=== PATIENT | female | born 1985 | race Caucasian/White ===

== ENCOUNTER 2017-11-16 20:32 | Inpatient (IN) | payer OTHER ==
[~2017-11-16] VITALS: Ht 160 cm; Wt 95.0 kg
[~2017-11-16 20:32] MED LIST: PREN1CAP7 PO
[2017-11-16] MEDS ORDERED: LACTATED RINGER'S 1000 ML INJ 1,000 ML IV PRN (21:21)
[2017-11-16] MEDS ORDERED: LIDOCAINE HCL 1% 50 ML VIAL INFIL PRN (21:30)
[2017-11-16] MEDS ORDERED: CITRIC ACID-SODIUM CITRATE LIQ 30 ML UDC PO SCH (21:30)
[2017-11-16] MEDS ORDERED: SODIUM CHLORID 0.9% 500 ML INJ 500 ML IV PRN (21:30)
[2017-11-16] MEDS ORDERED: LIDOCAINE HCL 1% 50 ML VIAL I-DERMAL PRN (21:30)
[2017-11-16] MEDS ORDERED: OXYTOCIN 30 UNITS-500ML PREMIX 500 ML IV ONE (21:30)
[2017-11-16] MEDS ORDERED: DINOPROSTONE 10 MG VAG INSERT VAGINAL ONE ×2 (21:30)
[2017-11-16] MEDS ORDERED: ONDANSETRON HCL 4 MG/2 ML VIAL IV PUSH PRN (21:30)
[2017-11-16] MEDS ORDERED: MINERAL OIL 10 ML VIAL TOPICAL PRN (21:30)
[2017-11-16] MEDS: LACTATED RINGER'S 1000 ML INJ 1,000 ML IV SCH (21:31)
[2017-11-16] MEDS ORDERED: SODIUM CHLOR 0.9% 1000 ML INJ 1,000 ML IV PRN (21:41)
[2017-11-16 22:09] LABS: BACTERIA, URINE RARE /hpf; BILIRUBIN, URINE NEG (NEG); BLOOD, URINE TRACE (NEG); GLUCOSE,URINE 300 mg/dL (NEG); KETONE, URINE NEG (NEG); MUCUS URINE FEW /lpf (OCC); NITRITE,URINE NEG (NEG); PH, URINE 5.5 (5.0-8.5); SQUAMOUS EPITHELIAL CELL URINE 1 /hpf (0-5); URINE COLOR YELLOW (YELLW/STRAW); URINE LEUKOCYTE ESTERASE NEG (NEG)
[2017-11-16 22:09] LABS: AUTOMATED NEUTROPHIL # 14.4 TH/MM3 (1.8-7.7); BASOPHIL % 0.2 % (0.0-2.0); EOSINOPHIL # 0.3 TH/MM3 (0-0.4); EOSINOPHIL % 1.6 % (0.0-4.0); HEMATOCRIT 34.1 % (35.0-46.0); HEMOGLOBIN 11.1 GM/DL (11.6-15.3); LYMPH % 14.2 % (9.0-44.0); LYMPHOCYTE # 2.7 TH/MM3 (1.0-4.8); MEAN CORPUSCULAR HEMOGLOBIN 24.8 PG (27.0-34.0); MEAN CORPUSCULAR HGB CONC 32.6 % (32.0-36.0); MEAN PLATELET VOLUME 7.7 FL (7.0-11.0); MONO % 7.8 % (0.0-8.0); MONOCYTE # 1.5 TH/MM3 (0-0.9); NEUT % 76.2 % (16.0-70.0); PLATELET COUNT 383 TH/MM3 (150-450); RED BLOOD COUNT 4.49 MIL/MM3 (4.00-5.30); WHITE BLOOD COUNT 18.9 TH/MM3 (4.0-11.0)
--- NOTE | 2017-11-16 22:10 | HHI.HP ---
HPI Chief Complaint Induction of labor Date Seen: Nov 16, 2017 Time Seen: 21:00 Travel History International Travel<30 Days: No Contact w/Intl Traveler<30Days: No Known Affected Area: No History of Present Illness HPI Patient is a 32-year-old at 41 weeks who presents here today for induction of labor for post dates. She had her care care for women. She has had no problems this . She denies any vaginal bleeding or significant leakage of fluid. She reports movement. She reports having irregular contractions. She reports having some mucus-like discharge the Thursday before last, about 10 days ago. Patient is GBS negative. All labs were reviewed and are unremarkable. Weeks Gestation: 41 Para: 2 : 5 Miscarriage: 2 History Past Medical History Medical History: Denies Significant Hx Obstetric History Obstetric History Patient is a . She reports that her first delivery was an induction for low fluid, oligohydramnios. There was still a full term delivery of a normal birthweight child. Her second delivery was a spontaneous vaginal delivery at over 41 weeks. She reports this was also a normal birthweight baby. She now has a healthy 12-year-old and a 5-year-old. She also reports 2 early miscarriages. Past Surgical History Surgical History: No Previous Surgery Family History Narrative Family History Her mother has a history of diabetes and hypertension. Social History Narrative Social History She feels safe at home. Alcohol Use: No Tobacco Use: Yes (She has been smoking throughout her and has cut down to about 4 cigarettes or 1/5 of a pack per day.) Substance Abuse: No Allergies-Medications (Allergen,Severity, Reaction): Coded Allergies: No Known Allergies (Verified Adverse Reaction, Unknown, 11/16/17) Home Meds Reported Medications W/O Vit A W/ Fe Fumar (Citranatal Menan) 27-1-260 Mg Cap, 1 CAP PO DAILY for Nutritional Supplement, #30 CAP 0 Refills 08/26/17 Review of Systems Except as stated in HPI: all other systems reviewed are Neg General / Constitutional: No: Fever, Chills Eyes: No: Visual changes HENT: No: Headaches Cardiovascular: No: Chest Pain or Discomfort, Edema Respiratory: No: Short of Breath Genitourinary: No: Dysuria, Decreased Urinary Output Musculoskeletal: No: Edema Neurologic: No: Headache Endocrine: No: Polydipsia, Polyuria Physical Exam 141/81, 91, 16, 98.3, pain 1 Narrative GENERAL: Well-nourished, well-developed patient. SKIN: Warm and dry. HEAD: Normocephalic and atraumatic. EYES: No scleral icterus. No injection or drainage. ENT: No nasal drainage noted. Mucous membranes pink. Airway patent. NECK: Supple, trachea midline. No JVD. CARDIOVASCULAR: Regular rate and rhythm without murmurs, gallops, or rubs. RESPIRATORY: Breath sounds equal bilaterally. No accessory muscle use. ABDOMEN/GI: Abdomen soft, non-tender, bowel sounds present, no rebound, no guarding Gravid to [41] weeks size Baby's back is to the right, head is cephalic both by palpation and by ultrasound GENITOURINARY: External Genitalia: intact and normal in appearance Cervix: [Posterior] Dilatation: [0-1 cm] Effacement: [30%] Station: [-3] Presentation: [cephalic] Membranes: [intact] Uterine Contractions: [Irregular, about every 5-7 minutes] FHT's: Category: [Category 1] Baseline: [140 bpm] Reactive: [Reactive] Variability: [Moderate] Decels: [None] EXTREMITIES: No cyanosis or edema. BACK: Nontender without obvious deformity. No CVA tenderness. NEUROLOGICAL: Awake and alert. Motor and sensory grossly within normal limits. Five out of 5 muscle strength in all muscle groups. Normal speech. Caprini VTE Risk Assessment Caprini VTE Risk Assessment: No/Low Risk (score <= 1) VTE Pharm Contraindication: High risk for bleeding Caprini Risk Assessment Model Point Value = 1 Point Value = 2 Point Value = 3 Point Value = 5 Age 41-60 Minor surgery BMI > 25 kg/m2 Swollen legs Varicose veins or History of unexplained or recurrent spontaneous Oral contraceptives or hormone replacement Sepsis (< 1 month) Serious lung disease, including pneumonia (< 1 month) Abnormal pulmonary function Acute myocardial infarction Congestive heart failure (< 1 month) History of inflammatory bowel disease Medical patient at bed rest Age 61-74 Arthroscopic surgery Major open surgery (> 45 min) Laparoscopic surgery (> 45 min) Malignancy Confined to bed (> 72 hours) Immobilizing plaster cast Central venous access Age >= 75 History of VTE Family history of VTE Factor V Leiden Prothrombin [id number] Lupus anticoagulant Anticardiolipin antibodies Elevated serum homocysteine Heparin-induced thrombocytopenia Other congenital or acquired thrombophilia Stroke (< 1 month) Elective arthroplasty Hip, pelvis, or leg fracture Acute spinal cord injury (< 1 month) Prophylaxis Regimen Total Risk Factor Score Risk Level Prophylaxis Regimen 0-1 Low Early ambulation 2 Moderate Order ONE of the following: *Sequential Compression Device (SCD) *Heparin 5000 units SQ BID 3-4 Higher Order ONE of the following medications: *Heparin 5000 units SQ TID *Enoxaparin/Lovenox 40 mg SQ daily (WT < 150 kg, CrCl > 30 mL/min) *Enoxaparin/Lovenox 30 mg SQ daily (WT < 150 kg, CrCl > 10-29 mL/min) *Enoxaparin/Lovenox 30 mg SQ BID (WT < 150 kg, CrCl > 30 mL/min) AND/OR *Sequential Compression Device (SCD) 5 or more Highest Order ONE of the following medications: *Heparin 5000 units SQ TID (Preferred with Epidurals) *Enoxaparin/Lovenox 40 mg SQ daily (WT < 150 kg, CrCl > 30 mL/min) *Enoxaparin/Lovenox 30 mg SQ daily (WT < 150 kg, CrCl > 10-29 mL/min) *Enoxaparin/Lovenox 30 mg SQ BID (WT < 150 kg, CrCl > 30 mL/min) AND *Sequential Compression Device (SCD) Data Data Vital Signs Reviewed: Yes Orders Orders Admit To Inpatient (11/16/17 ) Activity Oob Ad Akua (11/16/17 21:21) ^ Labor Induction (11/16/17 21:21) ^ Vaginal Insert (11/16/17 21:21) Heart (11/16/17 21:21) Dinoprostone Vag Insert (Cervidil Vag In (11/16/17 21:30) Dinoprostone Vag Insert (Cervidil Vag In (11/16/17 21:30) Admit To Inpatient (11/16/17 ) Code Status (11/16/17 21:21) Vital Signs (Adult) .Per protocol (11/16/17 21:21) Activity Oob Ad Akua (11/16/17 21:21) Heart (11/16/17 21:21) Amnioinfusion (11/16/17 21:21) Urinary Catheter Management .ONCE (11/16/17 21:21) Diet Liquid (11/17/17 Breakfast) Lactated Ringer's 1000 Ml Inj (Lr 1000 M (11/16/17 21:21) Lactated Ringer's 1000 Ml Inj (Lr 1000 M (11/16/17 21:21) Sodium Chlorid 0.9% 500 Ml Inj (Ns 500 M (11/16/17 21:30) Sodium Chlor 0.9% 1000 Ml Inj (Ns 1000 M (11/16/17 21:41) Lidocaine 1% Inj (50 Ml) (Xylocaine 1% I (11/16/17 21:30) Citric Acid-Sodium Citrate Liq (Bicitra (11/16/17 21:30) Ondansetron Inj (Zofran Inj) (11/16/17 21:30) Fentanyl Inj (Fentanyl Inj) (11/16/17 21:30) Fentanyl Inj (Fentanyl Inj) (11/16/17 21:30) Complete Blood Count With Diff (11/16/17 21:21) Hold Clot (11/16/17 21:21) Abo/Rh Blood Type (11/16/17 21:21) Urinalysis - C+S If Indicated (11/16/17 21:21) Drug Screen, Random Urine (11/16/17 21:21) Ob/Psych Drug Screen, Urine (11/16/17 21:21) Type And Screen (11/16/17 21:21) Resp Oxygen Non Rebreathe Mask (11/16/17 ) ^ Epidural / Intrathecal Infus (11/16/17 21:21) Oxytocin 30 Units-500ml Premix (Pitocin (11/16/17 21:30) Lidocaine 1% Inj (50 Ml) (Xylocaine 1% I (11/16/17 21:30) Light Mineral Oil (Muri-Lube Oil) (11/16/17 21:30) Inpatient Certification (11/16/17 ) Inpatient Certification (11/16/17 ) Specimen To Be Collected PRN (11/16/17 21:21) Specimen To Be Collected PRN (11/16/17 21:21) Group B Strep: Negative Assessment/Plan Problem List: (1) Encounter for induction of labor ICD Codes: Z34.90 - Encounter for supervision of normal , unspecified , unspecified trimester (2) Post-dates ICD Codes: O48.0 - Post-term Assessment and Plan Patient is a 32-year-old at 41 weeks who presents here today for induction of labor for post dates. Patient is GBS negative. heart tracing is category 1, reassuring. Cervical exam is long thick and closed. Cephalic position confirmed by ultrasound. Plan to admit for induction of labor , cervical ripening with Cervidil. 1) labor and delivery admission and induction of labor for post dates -Admitted to inpatient -ABO/Rh blood type, hold clot, type and screen -Liquid diet -CBC, UDS, UA -LR IV at 125 mL/h -Cervidil; monitor for hyperstimulation -Fentanyl as needed for pain -Zofran as needed for nausea -Patient requested epidural -Monitor vital signs -Anticipate vaginal delivery Pt s/d/w Dr. Horton. Danielito Gale MD R2 Nov 16, 2017 22:09
[2017-11-17] VITALS (22 sets, daily range): BP systolic 118–139; BP diastolic 60–92; PULSE 68–91; RESP 16–20; TEMP 97.5–98.7
[2017-11-17] MEDS: LACTATED RINGER'S 1000 ML INJ 1,000 ML IV SCH ×3 (06:22→23:27)
--- NOTE | 2017-11-17 09:26 | PD.LABORPN ---
Subjective Subjective Ms Maya is a 32YO at 41/1 undergoing IOL. Cervidil removed at 09:13AM. Cervix 1-2/60/-3. FHT Cat 1, w/BL 120, reactive, moderate, no decels, no ctx Objective Vital Signs Vital Signs Date Time Temp Pulse Resp B/P (MAP) Pulse Ox O2 Delivery O2 Flow Rate FiO2 11/17/17 07:28 68 128/84 (99) 11/17/17 07:28 20 11/17/17 07:27 97.5 11/17/17 03:52 98.0 16 11/17/17 03:51 83 137/89 (105) Objective Pelvic Exam: Cervix: open/posterior Dilatation: 1-2 Effacement: 60 Station: -3 Presentation: vtx Membranes: intact Uterine Contractions: absent FHT's: Category: 1 Baseline: 120 Reactive: yes Variability: moderate Decels: absent Weeks Gestation: 41 Medical induction start date: Nov 16, 2017 Medical induction start time: 22:00 Assessment/Plan Problem List: (1) Encounter for induction of labor ICD Codes: Z34.90 - Encounter for supervision of normal , unspecified , unspecified trimester (2) Post-dates ICD Codes: O48.0 - Post-term Assessment and Plan 32YO at 41/1 weeks here for post-dates IOL. Cervidil placed last night at approx 22:00hrs and removed at 0913hrs. Cervix open/posterior, 1-2/60/-3. FHT cat 1, BL 120, reactive, moderate, absent decels 1. IUP - induction of labor for post dates -Cervidil removed 0913hrs -Start Pitocin after 30 minutes (approx 0945hrs) -Fentanyl as needed for pain -Zofran as needed for nausea -Patient requested epidural -Monitor vital signs -Anticipate vaginal delivery Pt seen and dw Devon Horton and Lucas Arambula MD R1 Nov 17, 2017 09:26
[2017-11-17] MEDS ORDERED: OXYTOCIN 30 UNITS-500ML PREMIX 500 ML ONE (09:40)
[2017-11-17] MEDS ORDERED: OXYTOCIN 30 UNITS-500ML PREMIX 500 ML IV PRN (10:15)
--- NOTE | 2017-11-17 10:44 | PD.LABORPN ---
Subjective Subjective Patient re-evaluated at bedside with Dr. Curiel. He discussed new plan of care- will discontinue Pitocin and start Cytotec 25mcg q4hr buccally. Monitor cervical checks q4hr. DW Labor nurse. Objective Vital Signs Vital Signs Date Time Temp Pulse Resp B/P (MAP) Pulse Ox O2 Delivery O2 Flow Rate FiO2 11/17/17 10:31 87 122/68 (86) 11/17/17 10:16 82 123/79 (94) 11/17/17 10:01 83 132/77 (95) 11/17/17 07:28 68 128/84 (99) 11/17/17 07:28 20 11/17/17 07:27 97.5 11/17/17 03:52 98.0 16 11/17/17 03:51 83 137/89 (105) Objective Pelvic Exam: Cervix: [-] Dilatation: [-] Effacement: [-] Station: [-] Presentation: [-] Membranes: [intact or ruptured] Uterine Contractions: [-] FHT's: Category: [-] Baseline: [-] Reactive: [-] Variability: [-] Decels: [-] Weeks Gestation: 41 Medical induction start date: Nov 16, 2017 Medical induction start time: 22:00 Assessment/Plan Problem List: (1) Encounter for induction of labor ICD Codes: Z34.90 - Encounter for supervision of normal , unspecified , unspecified trimester (2) Post-dates ICD Codes: O48.0 - Post-term Laura Nielsen MD R2 Nov 17, 2017 10:44
[2017-11-17] MEDS: MISOPROSTOL 25 MCG TAB PO SCH ×4 (11:13→23:27)
[2017-11-17] MEDS ORDERED: MISOPROSTOL 200 MCG TAB PO SCH (13:00)
[2017-11-18] VITALS (50 sets, daily range): BP systolic 90–156; BP diastolic 50–81; PULSE 65–91; RESP 16–18; TEMP 97.6–98
[2017-11-18] MEDS: MISOPROSTOL 25 MCG TAB PO SCH ×3 (03:30→11:30)
[2017-11-18] MEDS: LACTATED RINGER'S 1000 ML INJ 1,000 ML IV SCH ×2 (07:30→12:06)
[2017-11-18] MEDS ORDERED: MISOPROSTOL 25 MCG TAB OTHER ONE (08:30)
--- NOTE | 2017-11-18 09:28 | PD.LABORPN ---
Subjective Subjective Patient still in latent phase, feeling some ctx. Just received fifth dose of Cytotec buccally. No complaints Objective Vital Signs Vital Signs Date Time Temp Pulse Resp B/P (MAP) Pulse Ox O2 Delivery O2 Flow Rate FiO2 11/18/17 07:22 97.8 18 11/18/17 07:21 73 120/81 (94) 11/18/17 06:49 18 11/18/17 05:30 18 11/18/17 04:00 18 11/18/17 02:00 16 Objective Pelvic Exam: Cervix: 3/70/-3, vertex Membranes: intact Uterine Contractions: every 2-5 min FHT's: Category: [1] Baseline: [140] Reactive: [160] Variability: [mod] Decels: [absent] Weeks Gestation: 41 Medical induction start date: Nov 16, 2017 Medical induction start time: 22:00 Assessment/Plan Problem List: (1) Encounter for induction of labor ICD Codes: Z34.90 - Encounter for supervision of normal , unspecified , unspecified trimester (2) Post-dates ICD Codes: O48.0 - Post-term Assessment and Plan 32YO at 41/2 weeks here for post-dates IOL. Cervidil 11/17 overnight, and now s/p Cytotec 25mcg q4hr x 5 doses. Continue IOL with Cytotec at this time, discuss further plans if no adequate CTX after this dose. Clear liquids 1. IUP - induction of labor for post dates -Fentanyl as needed for pain -Zofran as needed for nausea -Patient requests epidural -Monitor vital signs -Anticipate vaginal delivery -GBS neg DW Laura Rodriguez MD R2 Nov 18, 2017 09:28
[2017-11-18] MEDS ORDERED: fentaNYL 2MCG-BUPIV 0.125% INJ 100 ML ONE (12:10)
[2017-11-18] MEDS ORDERED: OXYTOCIN 30 UNITS-500ML PREMIX 500 ML IV PRN (12:30)
[2017-11-18] MEDS ORDERED: NO SYSTEM NARCOTICS PRN (13:30)
[2017-11-18] MEDS ORDERED: ePHEDrine/NS 25 MG/5 ML SYRINGE IV PUSH PRN (13:30)
[2017-11-18] MEDS ORDERED: fentaNYL 2MCG-BUPIV 0.125% 100 ML EPIDURAL SCH (13:30)
[2017-11-18] MEDS ORDERED: DO NOT ADMINISTER ANTICOAGULANTS PRN (13:30)
[2017-11-18] MEDS ORDERED: LIDOCAINE HCL 1% PF 5 ML AMPULE ONE (16:08)
--- NOTE | 2017-11-18 18:20 | PD.OB.DELI ---
Weeks gestation: 41 Medical induction start date: Nov 16, 2017 Medical induction start time: 22:00 Anesthesia: Epidural Episiotomy: None Vaginal Delivery: Normal, Spontaneous Presentation: Occiput anterior, Vertex Nuchal Cord: None Delayed cord clamping (45 sec): Yes Infant: Male Delivery date: Nov 18, 2017 Delivery time: 18:06 One Minute : 8 Five Minute : 8 Weight: 4145g Placenta: Spontaneous delivery Laceration: No lacerations Estimated blood loss: 100cc Additional Information Dr Horton supervised while Dr Castro delivered the infant. Dr Praveen Anderson assisted. Lucas Castro MD R1 Nov 18, 2017 18:20
[2017-11-18] MEDS ORDERED: BENZOCAINE 20% TOPICAL SPRAY 60 ML CAN TOPICAL PRN (19:00)
[2017-11-18] MEDS ORDERED: OXYTOCIN 30 UNITS-500ML PREMIX 500 ML IV SCH (19:00)
[2017-11-18] MEDS ORDERED: ALUMINUM/MAGNESIUM/SIMETH 30 ML CUP PO PRN (19:00)
[2017-11-18] MEDS ORDERED: ACETAMINOPHEN 325 MG TAB PO PRN (19:00)
[2017-11-18] MEDS ORDERED: SODIUM CHLORIDE 0.9% FLUSH 10 ML FLUSH IV FLUSH PRN (19:00)
[2017-11-18] MEDS ORDERED: WITCH HAZEL 50%/GLYCERIN 12.5% 40 PAD JAR TOPICAL PRN (19:00)
[2017-11-18] MEDS ORDERED: MEASLES, MUMPS, RUBELLA VACCINE 0.5 ML VIAL SQ ONE (19:00)
[2017-11-18] MEDS ORDERED: ONDANSETRON ODT 4 MG TAB PO PRN (19:00)
[2017-11-18] MEDS ORDERED: DIPHTH/TETANUS/ACEL PERTUSSIS (BOOSTER) 0.5 ML VIAL/PFS IM ONE (19:00)
[2017-11-18] MEDS ORDERED: SODIUM CHLORIDE 0.9% FLUSH 10 ML FLUSH IV FLUSH SCH (21:00)
[2017-11-18] MEDS ORDERED: ZOLPIDEM TARTRATE 5 MG TAB PO PRN (21:00)
[2017-11-19] MEDS: IBUPROFEN 800 MG TAB PO PRN ×3 (05:53→23:47)
[2017-11-19] MEDS ORDERED: PETROLEUM/SHARK LIVER OIL/PHENYLEPHRINE 60 GM TUBE RECTAL PRN (07:45)
[2017-11-19 08:00] VITALS: BP 127/77; PULSE 73; RESP 20; TEMP 97.6; O2SAT 98
[2017-11-19] MEDS: DOCUSATE SODIUM 50 MG/SENNA 8.6 MG TAB PO PRN (09:31)
--- NOTE | 2017-11-19 09:41 | HHI.OB ---
Subjective Post Day: 1 Remarks Ms Trejo had no acute events overnight. Pain well controlled but with bothersome hemorrhoids, ambulating w/o dizziness, taking PO, voiding and flatus but no BM. Lochia decreasing. . Plans to get a tubal ligation performed and will discuss at 6 week follow up with [facility]. Requests circumcision for baby prior to discharge. No concerns. Objective Vitals/I&O Vital Signs Date Time Temp Pulse Resp B/P (MAP) Pulse Ox O2 Delivery O2 Flow Rate FiO2 11/18/17 22:20 77 136/78 (97) 11/18/17 22:20 97.8 11/18/17 22:20 16 11/18/17 20:07 18 11/18/17 20:00 68 136/72 (93) 11/18/17 19:45 75 133/76 (95) 11/18/17 19:30 69 129/70 (89) 11/18/17 19:15 73 141/69 (93) 11/18/17 19:15 18 11/18/17 19:00 79 140/73 (95) 11/18/17 18:59 18 11/18/17 18:45 86 141/74 (96) 11/18/17 18:44 98.0 11/18/17 18:42 18 11/18/17 18:30 80 135/63 (87) 11/18/17 18:24 18 11/18/17 18:23 82 146/72 (96) 11/18/17 17:30 84 148/73 (98) 11/18/17 17:06 18 11/18/17 17:00 81 106/65 (79) 11/18/17 16:30 76 135/80 (98) 11/18/17 16:11 18 11/18/17 16:11 97.7 11/18/17 16:00 69 128/74 (92) 11/18/17 15:31 85 112/50 (70) 11/18/17 15:09 16 11/18/17 15:01 75 90/56 (67) 11/18/17 14:30 71 129/66 (87) 11/18/17 14:14 97.6 11/18/17 14:08 18 11/18/17 14:00 65 131/68 (89) 11/18/17 13:30 68 124/66 (85) 11/18/17 13:30 66 11/18/17 13:25 68 11/18/17 13:20 75 11/18/17 13:15 79 11/18/17 13:10 74 136/58 (84) 11/18/17 13:10 71 11/18/17 13:05 81 98/52 (67) 11/18/17 13:05 78 11/18/17 13:00 79 127/66 (86) 11/18/17 13:00 77 11/18/17 12:55 76 18 11/18/17 12:55 79 133/66 (88) 11/18/17 12:50 80 11/18/17 12:50 85 131/64 (86) 11/18/17 12:45 88 11/18/17 12:45 83 121/64 (83) 11/18/17 12:40 83 11/18/17 12:40 91 148/69 (95) 11/18/17 12:35 91 143/62 (89) 11/18/17 12:35 86 11/18/17 12:31 85 130/77 (94) 11/18/17 12:30 82 11/18/17 12:29 79 156/69 (98) 11/18/17 11:47 97.7 18 11/18/17 11:47 72 143/81 (101) Objective Remarks GENERAL: Well-nourished, well-developed patient in [facility]. CARDIOVASCULAR: Regular rate and rhythm without murmurs, gallops, or rubs. RESPIRATORY: Breath sounds equal bilaterally. No accessory muscle use. ABDOMEN/GI: Abdomen soft, non-tender. Fundus: Firm, non-tender at umbilicus. GENITOURINARY: Light to moderate bleeding. EXTREMITIES: No cyanosis or edema, non-tender, without signs of DVT. Medications and IVs Current Medications Medications (Trade) Dose Ordered Sig/Davi Route Start Time Stop Time Status Last Admin Lactated Ringer's 1,000 ml @ 125 mls/hr Q8H IV 11/16/17 21:21 11/18/17 12:06 Lactated Ringer's 1,000 ml @ 3,000 mls/hr Q20M PRN IV 11/16/17 21:21 Sodium Chloride 1,000 ml @ 100 mls/hr Q10H PRN IV 11/16/17 21:41 (Xylocaine 1% Inj (50 ml)) 0.1 ml UNSCH X1 PRN I-DERMAL 11/16/17 21:30 11/19/17 21:29 (Bicitra Liq) 30 ml [employer] PO 11/16/17 21:30 11/20/17 21:29 (fentaNYL INJ) 50 mcg Q1H PRN IV PUSH 11/16/17 21:30 (fentaNYL INJ) 100 mcg Q1H PRN IV PUSH 11/16/17 21:30 (Muri-Lube Oil) 10 ml UNSCH PRN TOPICAL 11/16/17 21:30 Miscellaneous Information No systemic narcotics to be given except... UNSCH PRN .XX 11/18/17 13:30 11/19/17 13:29 Miscellaneous Information DO NOT ADMINISTER ANY ANTICOAGUL... UNSCH PRN .XX 11/18/17 13:30 11/19/17 13:29 Fentanyl/ Bupivacaine HCl 100 ml @ 0 mls/hr TITRATE EPIDURAL 11/18/17 13:30 (ePHEDrine/NS 25 MG/5 ML SYR) 10 mg UNSCH PRN IV PUSH 11/18/17 13:30 11/19/17 13:29 (NS Flush) 2 ml BID IV FLUSH 11/18/17 21:00 (NS Flush) 2 ml UNSCH PRN IV FLUSH 11/18/17 19:00 (Tylenol) 650 mg Q4H PRN PO 11/18/17 19:00 (Motrin) 800 mg Q8H PRN PO 11/18/17 19:00 11/19/17 05:53 (Americaine 20% Top Spr) 1 spray Q4H PRN TOPICAL 11/18/17 19:00 11/19/17 05:54 (Tucks Pads) 1 applic QID PRN TOPICAL 11/18/17 19:00 11/19/17 09:30 (Emily-Colace) 2 tab Q12H PRN PO 11/18/17 19:00 11/19/17 09:31 (Ambien) 5 mg HS PRN PO 11/18/17 21:00 (Mag-Al Plus Susp Liq) 15 ml Q8H PRN PO 11/18/17 19:00 (Zofran Odt) 4 mg Q6H PRN PO 11/18/17 19:00 (Preparation H Oint) 1 applic Q6H PRN RECTAL 11/19/17 07:45 11/19/17 09:31 Assessment/Plan Problem List: (1) Encounter for induction of labor ICD Codes: Z34.90 - Encounter for supervision of normal , unspecified , unspecified trimester (2) Post-dates ICD Codes: O48.0 - Post-term Assessment and Plan 32-year-old delivered via after IOL at 41/2 and is PPD#1. Pain well controlled but with bothersome hemorrhoids, ambulating w/o dizziness, taking PO , voiding and flatus but no BM. Lochia decreasing. . Plans to get a tubal ligation performed and will discuss at 6 week follow up with [facility] [employer] [facility]. Requests circumcision for baby prior to discharge. No concerns. 1. Routine care -Motrin and tylenol PRN -Preparation H PRN topical cream for hemorrhoids -Showers but no baths for next 2 weeks -OOB and Ambulation -Pelvic rest for 6 weeks/nothing in the vagina -Plans tubal ligation for contraception -Will follow up with [facility] [employer] [facility] in 6 weeks Pt d/w Dr. Horton Discharge Planning 11/20/17 Lucas Castro MD R1 Nov 19, 2017 09:41
[2017-11-19 20:00] VITALS: BP 123/68; PULSE 93; RESP 18; TEMP 97.7; O2SAT 99
[2017-11-20] MEDS: DOCUSATE SODIUM 50 MG/SENNA 8.6 MG TAB PO PRN (05:24)
[2017-11-20 08:00] VITALS: BP_SYST 138; BP_SYST 155; BP_DIAS 82; BP_DIAS 91; PULSE 122; PULSE 78; RESP 20; TEMP 97.7; TEMP 98.1; O2SAT 99
[2017-11-20] MEDS ORDERED: IBUP1TAB7 PO (09:27)
[2017-11-20] MEDS ORDERED: ACET325T15 PO (09:27)
--- NOTE | 2017-11-20 09:28 | HHI.DCPOC ---
Discharge Care Plan Report Symptoms to Your Doctor -Temperature above 100.5 degrees -Redness, of incision or excessive or foul smelling drainage -Unusual pain or calf pain -Increased vaginal bleeding -Painful or difficulty urinating -Feelings of extreme sadness or anxiety after 2 weeks Goals to Promote Your Health * To prevent worsening of your condition and complications, please take medications as prescribed. * To maintain your health at the optimal level, please follow up with [facility] in 6 weeks. Directions to Meet Your Goals Take your medications as prescribed Follow your dietary instruction Follow activity as directed Ensure plenty of rest for recovery Drink fluids for hydration Keep your appointments as scheduled Take your immunizations and boosters as scheduled If your symptoms worsen call your PCP, if no PCP go to Urgent Care Center or Emergency Room Smoking is Dangerous to Your Health. Avoid second hand smoke Call the 24-hour crisis hotline for domestic abuse at Lucas Castro MD R1 Nov 20, 2017 09:28
--- NOTE | 2017-11-20 09:55 | HHI.OB ---
Subjective Post Day: 2 Remarks No acute events overnight and is PPD#2. Pain well controlled, ambulating w/o dizziness, taking PO, voiding and one BM. Lochia decreasing. . Plans to get a tubal ligation performed and will discuss at 6 week follow up with [facility]. Plans circumcision for baby this morning. Stable and no concerns. Objective Vitals/I&O Vital Signs Date Time Temp Pulse Resp B/P (MAP) Pulse Ox O2 Delivery O2 Flow Rate FiO2 11/20/17 08:00 78 20 138/82 (100) 11/20/17 08:00 155/91 (112) 11/20/17 08:00 98.1 99 11/20/17 08:00 122 20 11/19/17 20:00 123/68 (86) 11/19/17 20:00 93 18 99 11/19/17 20:00 97.7 Objective Remarks GENERAL: Well-nourished, well-developed patient in [place]. CARDIOVASCULAR: Regular rate and rhythm without murmurs, gallops, or rubs. RESPIRATORY: Breath sounds equal bilaterally. No accessory muscle use. ABDOMEN/GI: Abdomen soft, non-tender. Fundus: Firm, non-tender at umbilicus. GENITOURINARY: Light to moderate bleeding. EXTREMITIES: No cyanosis or edema, non-tender, without signs of DVT. Medications and IVs Current Medications Medications (Trade) Dose Ordered Sig/Davi Route Start Time Stop Time Status Last Admin Lactated Ringer's 1,000 ml @ 125 mls/hr Q8H IV 11/16/17 21:21 11/18/17 12:06 Lactated Ringer's 1,000 ml @ 3,000 mls/hr Q20M PRN IV 11/16/17 21:21 Sodium Chloride 1,000 ml @ 100 mls/hr Q10H PRN IV 11/16/17 21:41 (Bicitra Liq) 30 ml PATIENT ACCOUNT SPECIALIST PO 11/16/17 21:30 11/20/17 21:29 (fentaNYL INJ) 50 mcg Q1H PRN IV PUSH 11/16/17 21:30 (fentaNYL INJ) 100 mcg Q1H PRN IV PUSH 11/16/17 21:30 (Muri-Lube Oil) 10 ml UNSCH PRN TOPICAL 11/16/17 21:30 Fentanyl/ Bupivacaine HCl 100 ml @ 0 mls/hr TITRATE EPIDURAL 11/18/17 13:30 (NS Flush) 2 ml BID IV FLUSH 11/18/17 21:00 (NS Flush) 2 ml UNSCH PRN IV FLUSH 11/18/17 19:00 (Tylenol) 650 mg Q4H PRN PO 11/18/17 19:00 (Motrin) 800 mg Q8H PRN PO 11/18/17 19:00 11/19/17 23:47 (Americaine 20% Top Spr) 1 spray Q4H PRN TOPICAL 11/18/17 19:00 11/19/17 05:54 (Tucks Pads) 1 applic QID PRN TOPICAL 11/18/17 19:00 11/19/17 09:30 (Emily-Colace) 2 tab Q12H PRN PO 11/18/17 19:00 11/20/17 05:24 (Ambien) 5 mg HS PRN PO 11/18/17 21:00 (Mag-Al Plus Susp Liq) 15 ml Q8H PRN PO 11/18/17 19:00 (Zofran Odt) 4 mg Q6H PRN PO 11/18/17 19:00 (Preparation H Oint) 1 applic Q6H PRN RECTAL 11/19/17 07:45 11/19/17 09:31 Assessment/Plan Problem List: (1) Encounter for induction of labor ICD Codes: Z34.90 - Encounter for supervision of normal , unspecified , unspecified trimester (2) Post-dates ICD Codes: O48.0 - Post-term Assessment and Plan 32-year-old delivered via after IOL at 41/2 and is PPD#2. Pain well controlled, ambulating w/o dizziness, taking PO, voiding and one BM. Lochia decreasing. . Plans to get a tubal ligation performed and will discuss at 6 week follow up with [facility] OPER[facility]. Circumcision for baby prior to discharge this morning. Stable and no concerns. 1. Routine care -Motrin and tylenol PRN -Preparation H PRN topical cream for hemorrhoids -Showers but no baths for next 2 weeks -OOB and Ambulation -Pelvic rest for 6 weeks/nothing in the vagina -Plans tubal ligation for contraception -Will follow up with BOOSTER OPERATOR in 6 weeks Pt d/w Devon Curiel and Martin Nielsen Discharge Planning 11/20/17 Lucas Castro MD R1 Nov 20, 2017 09:55
== END 2017-11-20 18:40 | disposition home or self-care (01) | DRG 775 ==
LOC: H2EA 20:32 → UNDOADMIN 20:32 → H2EA 20:35 → H1EA 11-18 20:51
PROVIDERS: ADMIT Obstetrics & Gynecology Maternal & Fetal Medicine; ATTEND Obstetrics & Gynecology Maternal & Fetal Medicine
PROC: 3E0P7VZ Introduction of Hormone into Female Reproductive, Via Natural or Artificial Opening (ICD-10-PCS; 2017-11-16)
PROC: 10E0XZZ Delivery of Products of Conception, External Approach (ICD-10-PCS; principal; 2017-11-18)
PROC: 3E0R3BZ Introduction of Anesthetic Agent into Spinal Canal, Percutaneous Approach (ICD-10-PCS; 2017-11-18)
PROC: 00HU33Z Insertion of Infusion Device into Spinal Canal, Percutaneous Approach (ICD-10-PCS; 2017-11-18)
DX: O48.0 Post-term pregnancy (principal); O87.2 Hemorrhoids in the puerperium; O99.334 Smoking (tobacco) complicating childbirth; F17.200 Nicotine dependence, unspecified, uncomplicated; Z3A.41 41 weeks gestation of pregnancy; Z37.0 Single live birth
CPT/HCPCS: 59025; 80307; 81001; 84112; 85025; 86850; 86900; 86901; 90715; J2590; J7120